=== PATIENT | male | born 1990 | race Caucasian/White ===

== ENCOUNTER 2024-06-11 08:43 | Emergency (ER) | payer OTHER, SELFPAY ==
[2024-06-11 08:45] VITALS: BP 119/73; PULSE 77; RESP 18; TEMP 36.9; O2SAT 100; BMI 25.7
--- NOTE | 2024-06-11 09:06 | ED.VIS.LOWEX ---
HPI History of Present Illness Chief Complaint: Lower Extremity Injury Informant: patient Narrative Narrative: 33-year-old male presenting to the emergency room with a chief complaint of left ankle injury. Patient states that he was at work and was horse playing with his coworker. States coworker fell on him and he heard a snap in the left ankle. He notes swelling and pain particularly lateral posterior. He denies any other injuries. PFSH PFSH Medical History no medical history Home Medications ?Medication ?Instructions ?Recorded ?Last Taken ?Type oxycodone-acetaminophen 5 mg-325 1 tab PO Q6H PRN pain 3 days #12 06/11/24 Unknown Rx mg tablet (Percocet) tabs Allergy/AdvReac Type Severity Reaction Status Date / Time No Known Allergies Allergy Verified 06/11/24 08:44 Family History no significant family his Surgical History no surgical history Social History Smoking Status: Never smoker ROS ROS ED Constitutional Constitutional ED: Denies chills or weight loss Eyes Eyes: Denies change in vision or diplopia ENT ENT ED: Denies ear pain, rhinorrhea or sore throat Cardiovascular Cardiovascular: Denies chest pain, orthopnea, palpitations or racing heartbeat Respiratory/Chest Respiratory/Chest: Denies cough, dyspnea or orthopnea Gastrointestinal Gastrointestinal: Denies abdominal pain, diarrhea, nausea or vomiting Genitourinary Genitourinary ED: Denies dysuria, hematuria or urinary frequency Musculoskeletal Musculoskeletal: Reports other Details: See history of present illness ; Denies arthralgias or myalgias Integumentary Denies abscess or rash Neurologic Neurologic: Denies headache(s) or weakness Psychiatric Psychiatric: Denies anxiety, depression, suicidal ideation or suicidal thoughts Endocrine Endocrinology: Denies polydipsia, polyphagia or polyuria Allergic/Immunologic Allergic/Immunologic ED: Denies mouth swelling, tongue swelling or urticaria EXAM Physical Exam Const Vital Signs: 06/11/24 08:45 Temperature 98.4 F Temperature Source Oral Pulse Rate 77 Respiratory Rate 18 Blood Pressure 119/73 Blood Pressure Mean 88 Pulse Ox 100 Oxygen Delivery Method Room Air Positive well nourished and well developed General Appearance ED: well developed and NAD HEENT Reports normocephalic, head/scalp atraumatic and moist mucous membranes Eyes PERRL and EOMs intact bilaterally Neck no lymphadenopathy, supple and no JVD Resp normal respiratory effort and clear to auscultation bilaterally Cardio regular rate, regular rhythm and no murmurs GI normal to inspection, nondistended, normoactive bowel sounds and non-tender Palpation: soft Back/Spine no CVA tenderness and normal ROM Extremity Extremity Narrative: There is swelling in both the medial and lateral malleolus. There is tenderness laterally and posteriorly. The Achilles pop only appears intact. Strong dorsalis pedis posterior tibial pulse. Distal sensation preserved. No fifth metatarsal or fibular head pain. General Extremety ED: Negative for edema General Extremity: Negative for edema Neuro oriented x3 and CN's II-XII intact bilaterally Sensorium / Orientation: alert Motor Exam: strength 5/5 throughout Psych mental status grossly normal Mood & Affect: Negative for depressed or tearful Skin no rashes or lesions noted and no wounds MDM MDM MDM Narrative Medical decision making narrative: Differential diagnosis includes but not limited to tibial/fibular fracture dislocation subluxation tendon injury ligamentous injury neurovascular injury My independent interpretation of the plain films of the left ankle is a distal fibular fracture. Patient will be made nonweightbearing given crutches. Boot orthosis will be given. He will need to follow-up with orthopedics. Patient received a dose of Motrin here in the department I can write a prescription for Percocet would recommend ice elevation. History & Record Review Discussion w/independent historian: Patient Radiography Diagnostic Testing: Clinical Impression(s) from Imaging Studies Ankle X-Ray 06/11/24 09:10 IMPRESSION: Nondisplaced oblique fracture involving the distal fibula. Soft tissue swelling Electronically Signed: Diego Mahan MD at 9:27 EDT , Discharge Plan Triage Chief Complaint: Lower Extremity Injury ED Provider: Casa Bethea Dx/Rx/DC Orders Clinical Impression: Fracture of distal end of fibula Instructions: ED Ankle Fracture Prescriptions: New oxycodone-acetaminophen [Percocet] 5-325 mg tablet 1 tab PO Q6H PRN (Reason: pain) 3 Days Qty: 12 0RF Primary Care Provider: Care Physician,No Primary Referrals: Moiz Ramirez MD [Med Staff - Active Staff] - As soon as possible (for orthopedics ) Care Physician,No Primary [Primary Care Provider] - Print Language: Togolese Disposition Disposition: Home, Self Care
--- NOTE | 2024-06-11 09:10 | RAD_ITS ---
STUDY: X-RAY - LEFT ANKLE REASON FOR EXAM: Male, 33 years old. Pain following injury. TECHNIQUE: 3 view(s) of the ankle. COMPARISON: None. FINDINGS: Nondisplaced oblique fracture of the distal fibular shaft. Normal medial and lateral malleoli. Normal tibiotalar articulation and ankle mortise. Normal visualized talus and calcaneus. The visualized subtalar, talonavicular, calcaneocuboid and tarsal articulations are normal. Soft tissue swelling. RAD/Ankle min 3 Views IMPRESSION: Nondisplaced oblique fracture involving the distal fibula. Soft tissue swelling Electronically Signed: Diego Mahan MD at 9:27 EDT ,
[2024-06-11] MEDS: Ibuprofen 600 MG Tablet PO (09:14)
== END 2024-06-11 11:08 | disposition home or self-care (01) ==
PROVIDERS: Emergency Provider Emergency Medicine; Visit Provider Emergency Medicine
DX: S82.435A Nondisplaced oblique fracture of shaft of left fibula, initial encounter for closed fracture (principal); W50.0XXA Accidental hit or strike by another person, initial encounter; Y93.72 Activity, wrestling; Y99.0 Civilian activity done for income or pay
CPT/HCPCS: 73610; 99284

== ENCOUNTER 2024-06-18 10:27 | Day surgery (SDC) | payer OTHER, SELFPAY ==
[2024-06-18] VITALS (11 sets, daily range): BP systolic 121–149; BP diastolic 61–87; PULSE 70–77; RESP 16–17; TEMP 36.1–36.6; O2SAT 96–100; BMI 25.7
[2024-06-18] MEDS: Lactated Ringers 1,000 ML 15 ML IV (11:01)
[2024-06-18] MEDS: Cefazolin 2 GM in Syringe IV (11:31)
[2024-06-18] MEDS: HYDROcodone Bitartrate/Apap 5/325 Tablet PO (14:11)
== END 2024-06-18 14:40 | disposition home or self-care (01) ==
LOC: SDC 10:29 → AC 10:29
PROVIDERS: PCP Family Medicine; Referring Provider Orthopaedic Surgery Sports Medicine; Visit Provider Orthopaedic Surgery Sports Medicine
PROC: (CPT 27792; principal; 2024-06-18 11:45)
DX: S82.435A Nondisplaced oblique fracture of shaft of left fibula, initial encounter for closed fracture (principal); S93.432A Sprain of tibiofibular ligament of left ankle, initial encounter; W50.0XXA Accidental hit or strike by another person, initial encounter; Y93.72 Activity, wrestling; Y99.0 Civilian activity done for income or pay
CPT/HCPCS: 27792; 27829; 64445; 01480; 73600; 76000; C1713; J7120; J2405

== ENCOUNTER 2024-07-30 11:00 | Outpatient (RCR) | payer SELFPAY ==
--- NOTE | 2024-07-22 10:15 | HP.PTEVAL ---
Patient's Visit Information Visit Information Visit Information: DARON CONWAY is a 33 year old M referred to Physical Therapy by Dr. Moiz Ramirez MD with a diagnosis of L fibular fracture. Date of Evaluation: 07/22/24 Physical Therapist: Luca Raman, DPT, OCS, CSCS Visit Plan Frequency: 1-2x /Week Duration: 4-6 Weeks Plan: 1-2x/week as needed for 6 weeks Pt is NWB until 07/31 doctor f/u in boot. IE HEP: ankle circles, PROM DF/PF with OP 10x 2x/day, seated heel toe raises 20x 2x/day adn towel toe curls 40x 2x/day treat with weekly progressions of ROM and strength ex until allowed to WB then gait training. ice as needed.Scar massage and manual as needed. Subjective Subjective: Broken fibula L leg wrestling with a friend. That was beginning of June 22, is 5 weeks post op now. In boot ever since and NWB L. Saw doctor a couple week ago and healing well. Sees doctor 08/03. Pain is not an issue. , some discomfort in am and stiff and it is in foot not ankle, swells and stings. Sleep is not a problem. 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 That went OK and will wean back to NWB work. Basic ADLs, dressing , bathroom, All NWB L and has gotten I. Exercises ROM Hints and fish is hobbies and went fishing with this but hunting cannot. Objective Objective: Walks back to PT with crutches nwb L and boot on, dons and doffs I. Trasnfers chair I and bed I. AROM B knee adn hips WFL L ankle aROM -5 DF, 35 PF, 12 inv and 5 eversion, R was 5 DF, 55 PF, 25 inv and 14 eversion. PROM L very similar increasing bu 2-3 degrees end range with obvious stretch. Gastroc and soleus L still very tight. strength tested at least 3 on L and 5/5 on R in ankle, knees were 4 B and hips 4 B abd , ext and flexion Incision is laterally and healed well without excessive redness heat or swelling and mild sticking under lateral scar. Balance/Special Test Scores Lower Extremity Functional Score: 23 Goals Goal 1:: 5 DF, 50 PF, 20 inv and 14 ev L ankle AROM without pain to get ready for gait Goal Time Frame: 2-4 Weeks Goal 2:: I appropriate HEP for ROM, stretch , strength and proprio L ankle Goal Time Frame: 4-6 Weeks Goal 3:: Gait (when allowed by doctor ) in community without gait deviaitons Goal Time Frame: 4-6 Weeks Goal 4:: steps reciprocal without rail once allowed by doctor Goal Time Frame: 4-6 Weeks Goal 5:: LEFS score 60 Goal Time Frame: 4-6 Weeks Rehabilitation Potential Physical Therapy Diagnosis: L ankle stiffness , weakness and loss of WB limiting function Rehabilitation Potential: Good Anticipated Interventions Patient/Client Instruction: Educate patient on: Condition and Plan of Care For the Purpose of:: To increase ROM, To improve nutrient delivery to tissue, To improve muscle performance and motor function and To increase tolerance to activity/condition/position Therapeutic Exercise to Include: Strength training, Flexibilty training, Gait and locomotor training, Passive ROM and Active ROM For the Purpose of:: To decrease pain, To increase ROM, To improve nutrient delivery to tissue, To improve muscle performance and motor function, To increase tolerance to activity/condition/position, To improve ability of physical actions for home/community/work/leisure, To improve gait and locomotor functions and To increase flexibility/ROM Manual Therapy Techniques to Include: Scar massage, Mobilization, Passive ROM and Soft tissue mobilization For the Purpose of:: To decrease pain, To increase ROM and To improve nutrient delivery to tissue Cryotherapy (ice pack, ice massage): Yes For the Purpose of:: To decrease swelling/inflammation Text: Thank you for the opportunity to evaluate your patient. For Medicare and Medicare HMO plans, please review the plan of care and approve it. It will need to be FAXED BACK to us at [phone] for Medicare purposes. For Medicare only, by signing this I certify the plan of care. Please let me know if there are questions or concerns regarding this plan of care. Physician Signature: Date:
--- NOTE | 2024-09-28 14:05 | HP.PT.NRP ---
Patient Information Patient Information: DARON CONWAY was seen in my office for initial evaluation on 07/22/24. The following Plan of Care was established for this patient: POC Established Initial Frequency: 1-2x /Week Initial Duration: 4-6 Weeks Anticipated Interventions Patient/Client Instruction: Educate patient on: Condition and Plan of Care For the Purpose of:: To increase ROM, To improve nutrient delivery to tissue, To improve muscle performance and motor function and To increase tolerance to activity/condition/position Therapeutic Exercise to Include: Strength training, Flexibilty training, Gait and locomotor training, Passive ROM and Active ROM For the Purpose of:: To decrease pain, To increase ROM, To improve nutrient delivery to tissue, To improve muscle performance and motor function, To increase tolerance to activity/condition/position, To improve ability of physical actions for home/community/work/leisure, To improve gait and locomotor functions and To increase flexibility/ROM Manual Therapy Techniques to Include: Scar massage, Mobilization, Passive ROM and Soft tissue mobilization For the Purpose of:: To decrease pain, To increase ROM and To improve nutrient delivery to tissue Cryotherapy (ice pack, ice massage): Yes For the Purpose of:: To decrease swelling/inflammation Last Seen Last Seen: This patient was last seen in our office 07/30/24. Pertinent comments regarding their Physical therapy will appear below: Pt seen 2 visits of POC and was doing well. He did not attend any further visits. At this point, it has been almost two months and I will discontinue from my care. At this point I will be discontinuing this patient from physical therapy. I would be happy to see this patient again in the future if found appropriate by the physician. Thank you! Luca Raman, DPT, OCS, CSCS Balance/Gait/Functional tests Balance/Special Test Scores Lower Extremity Functional Score: 23
== END 2024-07-30 19:00 | disposition home or self-care (01) ==
LOC: PT 11:00
PROVIDERS: PCP Family Medicine; Referring Provider Orthopaedic Surgery Sports Medicine; Visit Provider Orthopaedic Surgery Sports Medicine
DX: S82.839D Other fracture of upper and lower end of unspecified fibula, subsequent encounter for closed fracture with routine healing (principal)
CPT/HCPCS: 97110; 97140; 97161